=== PATIENT | female | born 1935 | race Caucasian/White ===

== ENCOUNTER 2021-09-02 08:07 | Emergency (ER) | payer MEDICARE | END 2021-09-02 10:31 | disposition home or self-care (01) | LOC: JP.ED 08:07 | DX: S22.42XA Multiple fractures of ribs, left side, initial encounter for closed fracture (principal); I10 Essential (primary) hypertension; E03.9 Hypothyroidism, unspecified; Z79.899 Other long term (current) drug therapy; W19.XXXA Unspecified fall, initial encounter | CPT/HCPCS: 71250; 74176; 99283 ==